=== PATIENT | female | born 1960 | race Caucasian/White ===

== ENCOUNTER 2017-07-03 11:07 | Emergency (ER) | payer BC ==
[~2017-07-03] VITALS: Ht 160 cm; Wt 70.0 kg
[2017-07-03] MEDS ORDERED: ATENOLOL50 MG PO (11:33)
[2017-07-03] MEDS ORDERED: CELEXA20 MG PO (11:34)
[2017-07-03] MEDS ORDERED: CHOLESTEROL PO (11:36)
[2017-07-03] MEDS ORDERED: XANAX0.5 MG PO (11:37)
[2017-07-03] MEDS ORDERED: COSENTYX 150 MG/ML IM (11:39)
[2017-07-03] MEDS ORDERED: PHENERGAN25 MG/TAB PO (13:13)
[2017-07-03] MEDS ORDERED: LORTAB 5/3255 MG PO (13:13)
[2017-07-03 13:30] VITALS: BP 174/76
== END 2017-07-03 13:30 | disposition home or self-care (01) | DRG 90 ==
LOC: ED 11:07
DX: S06.0X0A Concussion without loss of consciousness, initial encounter (principal); E78.00 Pure hypercholesterolemia, unspecified; I10 Essential (primary) hypertension; F41.9 Anxiety disorder, unspecified; L40.9 Psoriasis, unspecified; W07.XXXA Fall from chair, initial encounter

== ENCOUNTER 2021-06-30 09:56 | Emergency (ER) | payer OTHER ==
[~2021-06-30] VITALS: Ht 160 cm; Wt 68.2 kg
[~2021-06-30 09:56] MED LIST: ATENOLOL50 MG PO; CELEXA20 MG PO; CHOLESTEROL PO; COSENTYX 150 MG/ML IM; LORTAB 5/3255 MG PO; PHENERGAN25 MG/TAB PO; XANAX0.5 MG PO
[2021-06-30] MEDS ORDERED: ZOFRAN4 MG/TAB PO (13:00)
[2021-06-30] MEDS ORDERED: ERYTHROMYCIN O3.5 GM TOP (13:00)
[2021-06-30] MEDS ORDERED: ULTRAM50 MG PO (13:00)
[2021-06-30] MEDS ORDERED: FLEXERIL5 M1 PO (13:00)
[2021-06-30 13:30] VITALS: BP 161/71
== END 2021-06-30 13:30 | disposition home or self-care (01) | DRG 605 ==
LOC: ED 09:56
DX: S00.81XA Abrasion of other part of head, initial encounter (principal); S00.12XA Contusion of left eyelid and periocular area, initial encounter; S00.11XA Contusion of right eyelid and periocular area, initial encounter; I10 Essential (primary) hypertension; F41.9 Anxiety disorder, unspecified; E78.00 Pure hypercholesterolemia, unspecified; W01.0XXA Fall on same level from slipping, tripping and stumbling without subsequent striking against object, initial encounter; Y92.009 Unspecified place in unspecified non-institutional (private) residence as the place of occurrence of the external cause